=== PATIENT | female | born 1930 | race Caucasian/White ===

== ENCOUNTER 2018-06-06 14:48 | Observation (INO) | payer MEDICARE ==
[~2018-06-06] VITALS: Ht 160 cm; Wt 47.8 kg
[~2018-06-06 14:48] MED LIST: AEC81 PO; DOXY100C2 PO; GABA-529 PO; HYDR-4060 PO; MAGN250T10 PO; METO-408 PO; TRAZ-185 PO
[2018-06-06 16:14] LABS: BASOPHILS % (AUTO) 0.8 % (0.0-5.0); EOSINOPHILS % (AUTO) 1.5 % (0.0-8.0); HEMATOCRIT 33.4 % (36-48); LYMPHOCYTES % (AUTO) 21.3 % (21.0-51.0); MEAN CORPUSCULAR HEMOGLOBIN 27.6 pg (27.0-33.0); MEAN CORPUSCULAR HGB CONC 33.3 g/dL (32.0-36.0); MEAN CORPUSCULAR VOLUME 83.1 fL (79-99); MONOCYTES % (AUTO) 8.8 % (3.0-13.0); NEUTROPHILS % (AUTO) 67.6 % (40.0-77.0); PLATELET COUNT (AUTO) 235 K/uL (130-400); RED BLOOD CELL COUNT(AUTO) 4.03 MIL/uL (4.00-5.50); RED CELL DISTRIBUTION WIDTH 14.7 % (11.0-15.5); WHITE BLOOD COUNT (AUTO) 4.8 K/uL (4.8-10.8)
[2018-06-06 16:24] LABS: CREATININE 0.9 mg/dL (0.5-1.5); POTASSIUM 4.2 mmol/L (3.5-5.1)
[2018-06-06 16:25] LABS: PARTIAL THROMBOPLASTIN TIME 25.5 SEC (26.3-35.5); PROTHROMBIN TIME 10.5 SEC (9.6-11.6)
[2018-06-06 16:28] LABS: ALBUMIN 3.6 g/dL (3.5-5.0); BILIRUBIN,TOTAL 0.3 mg/dL (0.2-1.0); TOTAL PROTEIN, SERUM 6.6 g/dL (6.0-8.3)
[2018-06-06] MEDS ORDERED: ASPIRIN 325MG EC TAB 325 MG TABLET.DR PO ONE (16:28)
[2018-06-06] MEDS ORDERED: ACETAMINOPHEN 325 MG TAB PO PRN (20:45)
[2018-06-06] MEDS ORDERED: NITROGLYCERIN 0.4 MG SL TAB SL PRN (20:45)
[2018-06-06] MEDS ORDERED: ONDANSETRON HCL 4 MG/2 ML VIAL IV PRN (20:45)
[2018-06-06] MEDS ORDERED: ACETAMINOPHEN 325 MG TAB ONE (20:46)
[2018-06-06] MEDS: METOPROLOL TARTRATE 25 MG TAB PO SCH (21:00)
[2018-06-06] MEDS: FAMOTIDINE 20MG TAB 20 MG TAB PO SCH (21:00)
[2018-06-06 21:03] LABS: MAGNESIUM 2.2 mg/dL (1.80-2.40); THYROID STIMULATING HORMONE 0.46 uIU/mL (0.36-3.74)
[2018-06-06 22:38] LABS: CREATINE KINASE, TOTAL 97 U/L (21-232); MYOGLOBIN 39 ng/mL (10-92); TROPONIN I < 0.04 ng/mL (0.00-0.06)
[2018-06-06] MEDS ORDERED: METOPROLOL TARTRATE 25 MG TAB ONE (22:58)
[2018-06-06] MEDS ORDERED: FAMOTIDINE 20MG TAB 20 MG TAB ONE (22:58)
[2018-06-06 23:47] LABS: APPEARANCE,URINE Clear (CLEAR); BILIRUBIN,URINE Negative (NEGATIVE); COLOR,URINE Yellow (YELLOW); GLUCOSE, URINE (UA) Negative (NEGATIVE); KETONES,URINE Negative (NEGATIVE); LEUKOCYTE ESTERASE ,URINE Negative (NEGATIVE); NITRATE,URINE Negative (NEGATIVE); OCCULT BLOOD,URINE Negative (NEGATIVE); PH,URINE 7.5 (5.0-8.0); PROTEIN,URINE Negative (NEGATIVE); UROBILINOGEN,URINE 0.2 mg/dL (0.2-1.0)
[2018-06-06 23:55] LABS: AMPHET/METH SCREEN,URINE NEGATIVE (NEGATIVE); BARBITURATE SCREEN, URINE NEGATIVE (NEGATIVE); BENZODIAZEPINES SCREEN,URINE NEGATIVE (NEGATIVE); CANNABINOID SCREEN,URINE NEGATIVE (NEGATIVE); COCAINE SCREEN,URINE NEGATIVE (NEGATIVE); OPIATE SCREEN,URINE NEGATIVE (NEGATIVE); PHENCYCLIDINE SCREEN,URINE NEGATIVE (NEGATIVE)
[2018-06-07] VITALS: BP 141/76
[2018-06-07 04:52] LABS: BASOPHILS % (AUTO) 1.3 % (0.0-5.0); HEMATOCRIT 36.5 % (36-48); LYMPHOCYTES % (AUTO) 35.2 % (21.0-51.0); MEAN CORPUSCULAR HEMOGLOBIN 27.5 pg (27.0-33.0); MEAN CORPUSCULAR HGB CONC 33.1 g/dL (32.0-36.0); MEAN CORPUSCULAR VOLUME 83.1 fL (79-99); MONOCYTES % (AUTO) 10.5 % (3.0-13.0); PLATELET COUNT (AUTO) 265 K/uL (130-400); RED BLOOD CELL COUNT(AUTO) 4.39 MIL/uL (4.00-5.50); RED CELL DISTRIBUTION WIDTH 14.9 % (11.0-15.5)
[2018-06-07 05:15] LABS: ALBUMIN 3.7 g/dL (3.5-5.0); BILIRUBIN,TOTAL 0.4 mg/dL (0.2-1.0); CREATININE 0.7 mg/dL (0.5-1.5); POTASSIUM 5.2 mmol/L (3.5-5.1); TOTAL PROTEIN, SERUM 7.2 g/dL (6.0-8.3)
[2018-06-07 05:19] LABS: CREATINE KINASE, TOTAL 159 U/L (21-232); MYOGLOBIN 40 ng/mL (10-92); TROPONIN I < 0.04 ng/mL (0.00-0.06)
[2018-06-07] MEDS: METOPROLOL TARTRATE 25 MG TAB PO SCH ×2 (09:00→23:05)
[2018-06-07] MEDS: ASPIRIN 325 MG TABLET PO SCH (09:00)
[2018-06-07] MEDS: ENOXAPARIN SODIUM 30 MG/0.3 ML SQ SCH (09:00)
[2018-06-07] MEDS: FAMOTIDINE 20MG TAB 20 MG TAB PO SCH ×2 (09:00→23:05)
[2018-06-07] MEDS: PREGABALIN 75 MG CAPSULE PO SCH (09:30)
[2018-06-07] MEDS: LIDOCAINE 5% TOPICAL PATCH TP SCH (09:30)
[2018-06-07] MEDS ORDERED: ACETAMINOPHEN 325 MG TAB ONE (11:17)
[2018-06-07 12:41] VITALS: BP 134/60
--- NOTE | 2018-06-07 13:31 | NUR ---
DCP Stacy met with pt who is resident at [facility]. Pt states everyone there is very nice and helpful. Pt has walker and no HH. Pt very emotional, "I don't know which way to turn. " Pt appears confused. Sw re oriented her to hospital. Pt states her son Reinaldo Encinas [phone] in [place]. " we talk often, and he gets mad at me". Sw provided emotional support. Stacy left message for irving Najera and waiting for response Addendum: 06/07/18 at 1338 by CATHIE CAMPBELL Amended: Links added.
[2018-06-07] MEDS: IBUPROFEN 600 MG TABLET PO SCH ×2 (14:00→23:06)
[2018-06-07] MEDS ORDERED: ASPIRIN 325 MG TABLET ONE (15:34)
[2018-06-07] MEDS ORDERED: ENOXAPARIN SODIUM 30 MG/0.3 ML SQ ONE (15:34)
[2018-06-07] MEDS ORDERED: FAMOTIDINE 20MG TAB 20 MG TAB ONE (15:34)
[2018-06-07 16:10] VITALS: BP 154/84
--- NOTE | 2018-06-07 16:17 | NUR ---
REPORT RECEIVED FROM JEAN MENDOZA (ED). PATIENT ADMITTED FOR CHEST PAIN R/O ACS WITH POSITIVE STRESS TEST. DR. AMBROSE CONSULTED. PATIENT SEEN BY JARAD GERBER (CARDIOLOGY). TROPONIN RESULTS NEGATIVE. PATIENT AMBULATING AND STABLE AT THIS TIME.
[2018-06-07 19:25] VITALS: BP 139/68
[2018-06-08 00:13] VITALS: BP 141/76
[2018-06-08 04:00] VITALS: BP 142/72
[2018-06-08] MEDS: IBUPROFEN 600 MG TABLET PO SCH (06:15)
[2018-06-08 08:54] VITALS: BP 136/56
[2018-06-08] MEDS: ENOXAPARIN SODIUM 30 MG/0.3 ML SQ SCH (09:00)
[2018-06-08] MEDS: PREGABALIN 75 MG CAPSULE PO SCH (09:33)
[2018-06-08] MEDS: METOPROLOL TARTRATE 25 MG TAB PO SCH (09:33)
[2018-06-08] MEDS: ASPIRIN 325 MG TABLET PO SCH (09:33)
[2018-06-08] MEDS: FAMOTIDINE 20MG TAB 20 MG TAB PO SCH (09:34)
[2018-06-08] MEDS: LIDOCAINE 5% TOPICAL PATCH TP SCH (09:35)
--- NOTE | 2018-06-08 10:00 | NUR ---
CM Note: [facility] reacceptance Spoke to Loly garg/Billy Rothman, pt has reacceptance, pt may transfer via [facility], states does not need new pasrr at this time. Primary nurse aware. CM to cont to follow up.
--- NOTE | 2018-06-08 12:56 | NUR ---
INSTRUCTIONS DISCHARGE INSTRUCTIONS GIVEN TO PATIENT USING TEACH BACK. IV HAS BEEN REMOVED WITH TIP INTACT. DIRECT PRESSURE APPLIED UNTIL BLEEDING STOPPED THEN SITE COVERED WITH GAUZE AND SECURED WITH A BAND-AID. F/U APPOINTMENTS WERE UNABLE TO BE MADE DUE TO NO ANSWER AT MD'S OFFICE. PHONE NUMBERS WERE PROVIDED FOR PATIENT TO CALL. SHE STATED THAT SHE USUALLY HAS THE SAME PROBLEM WITH CALLS NOT BEING ANSWERED. NO QUESTIONS OR CONCERNS VOICED.
== END 2018-06-08 14:35 ==
LOC: EDH 14:48 → EDHIP 20:26 → 3CH 06-07 16:15
PROVIDERS: ADMIT Family Medicine; ATTEND Family Medicine
DX: R07.89 Other chest pain (principal); E03.9 Hypothyroidism, unspecified; E04.9 Nontoxic goiter, unspecified; I10 Essential (primary) hypertension; I25.10 Atherosclerotic heart disease of native coronary artery without angina pectoris; I48.0 Paroxysmal atrial fibrillation; Z79.82 Long term (current) use of aspirin; Z95.1 Presence of aortocoronary bypass graft
CPT/HCPCS: 36415 ×2; 70450; 71045; 72100; 72202; 73521; 80053 ×2; 80061; 80305; 81003; 82550 ×3; 83735; 83874 ×2; 84443; 84484 ×3; 85025 ×2; 85610; 85730; 93005 ×3; 99284; G0378 ×42; J1650